=== PATIENT | female | born 1990 | race Two or more races ===

== ENCOUNTER 2021-01-29 02:27 | Emergency (ER) | payer BC ==
[~2021-01-29] VITALS: Ht 172.7 cm; Wt 87.1 kg
[2021-01-29] MEDS ORDERED: AMOX-CLAV 875-1 EAC1 PO (04:12)
[2021-01-29] MEDS ORDERED: INTESTINEX680 M2 PO (04:12)
[2021-01-29] MEDS ORDERED: NAPROXEN375 MG PO (04:12)
== END 2021-01-29 04:20 | disposition home or self-care (01) ==
LOC: ER 02:27
DX: H66.91 Otitis media, unspecified, right ear (principal)